=== PATIENT | male | born 1995 | race Caucasian/White ===

== ENCOUNTER 2017-11-29 05:08 | Emergency (ER) | payer OTHER ==
[~2017-11-29] VITALS: Ht 182.9 cm; Wt 104.3 kg
--- OUTSIDE RECORDS SUMMARY | 2017-11-29 05:17 | XMS REPORT | Continuity of Care Document ---
Author Author [facility] Organization [facility] Address Unknown Phone Unavailable Allergies There is no data. Medications There is no data. Problems There is no data. Procedures There is no data. Results There is no data. Encounters ACCT No. Visit Date/Time Discharge Status Pt. Type Provider Facility Loc./Unit Complaint [id number] 06/28/2014 14:37:39 06/28/2014 23:59:59 [facility] Garvey [id number] 06/28/2014 13:59:22 06/28/2014 23:59:59 [facility] Garvey [id number] 06/21/2014 12:04:54 06/21/2014 23:59:59 [facility] Israel Garvey [id number] 06/18/2014 11:51:39 06/18/2014 23:59:59 [facility] Israel Garvey
[2017-11-29] MEDS ORDERED: RX-ONDANSETRON 4 MG ODT (ZOFRAN) PPK #4 PO STA (05:24)
--- NOTE | 2017-11-29 05:31 | ED GI ---
General Chief Complaint: Abdominal/GI Problems Stated Complaint: POSS FOOD POISONING,VOMITING,DIARRHEA Nursing Triage Note: PT TO ED 6 W/ C/O N/V/D ONSET 2200 AFTER EATING HAMBURGERS AT 1830. PT REPORTS HE THINKS HE HAS FOOD POISONING. Sepsis Screen: No Definite Risk Source of Information: Patient Exam Limitations: No Limitations History of Present Illness Date Seen by Provider: Nov 29, 2017 Time Seen by Provider: 05:17 Initial Comments Patient presents to the ER by private conveyance with chief complaint that last night he took some hamburgers on the range and so that they had a warm pink center like he normally eats them at about 1830. About 0 last night he began to experience abdominal cramps, diarrhea that is without blood and nausea and vomiting 5 or 6 times tonight. Is feeling dehydrated and wants something for the nausea. Says he can't keep anything down. He has no other significant medical or surgical history. He is on Vyvanse for ADHD. He has not been on antibiotics in the last 4 weeks nor has he had any travel outside of the [facility]. He is not having fevers, chest pain, shortness of breath. Allergies and Home Medications Allergies Coded Allergies: amoxicillin (Verified Allergy, Unknown, 11/29/17) Home Medications No Active Prescriptions or Reported Meds Review of Systems Constitutional: No chills, No diaphoresis EENTM: No Ear Pain, No Mouth Pain Respiratory: Denies Cough, Denies Shortness of Air Cardiovascular: Denies Chest Pain, Denies Palpitations Gastrointestinal: Denies Constipated, Diarrhea, Nausea, Poor Fluid Intake, Vomiting Musculoskeletal: No back pain, No joint pain Skin: No pruritus, No rash Psychiatric/Neurological: Denies Headache, Denies Numbness Past Dyjtftw-Enxosr-Povdfk Hx Patient Social History Alcohol Use: Occasionally Uses Recreational Drug Use: No Smoking Status: Never a Smoker Recent Foreign Travel: No Contact w/Someone Who Travel: No Recent Infectious Disease Expo: No Recent Hopitalizations: No Physical Abuse: No Sexual Abuse: No Mistreated: No Fear: No Surgeries History of Surgeries: Yes Surgeries: Appendectomy Respiratory History of Respiratory Disorde: No Cardiovascular History of Cardiac Disorders: No Neurological History of Neurological Disord: No Genitourinary History of Genitourinary Disor: No Gastrointestinal History of Gastrointestinal Di: No Musculoskeletal History of Musculoskeletal Dis: No Endocrine History of Endocrine Disorders: No HEENT History of HEENT Disorders: No Cancer History of Cancer: No Psychosocial History of Psychiatric Problem: No Suicide Risk Score: 0 Integumentary History of Skin or Integumenta: No Blood Transfusions History of Blood Disorders: No Physical Exam Vital Signs VS - Last 72 Hours, by Label 11/29/17 05:12 Temp 96.6 Pulse 127 Resp 18 B/P (MAP) 132/97 (109) Pulse Ox 98 O2 Delivery Room Air Capillary Refill : Less Than 3 Seconds General Appearance: WD/WN, no apparent distress HEENT: PERRL/EOMI, pharynx normal (oropharynx is moist.) Respiratory: chest non-tender, lungs clear, normal breath sounds Cardiovascular: normal peripheral pulses, regular rate, rhythm, no edema Gastrointestinal: normal bowel sounds, non tender, soft Extremities: non-tender, normal capillary refill Neurologic/Psychiatric: alert, normal mood/affect, oriented x 3 Skin: normal color, warm/dry Progress/Results/Core Measures Results/Orders Vital Signs/I&O Vital Sign - Last 12Hours 11/29/17 05:12 Temp 96.6 Pulse 127 Resp 18 B/P (MAP) 132/97 (109) Pulse Ox 98 O2 Delivery Room Air Blood Pressure Mean: 109 Progress Note : Time: 05:28 Progress Note We'll give the patient some Zofran and he should be a little tolerate oral rehydration sports drinks at home. He Departure Impression Impression: Primary Impression: Gastroenteritis and colitis, toxic Disposition: 01 HOME, SELF-CARE Condition: Stable Departure-Patient Inst. Decision time for Depature: 05:29 Referrals: BEN OROZCO MD (PCP/Family) Primary Care Physician Patient Instructions: Viral Gastroenteritis, Adult (DC) Add. Discharge Instructions: Use the Zofran 1 tablet on the tongue every 4 hours as needed to control your nausea. Drink lots of fluids especially sports drinks. Please do not take anything to slow down or stop your diarrhea for at least the first 24-48 hours. Make sure you're drinking more fluids than you're losing. If you're unable to keep up with your fluid intake then you can take 2 tablets of Imodium/ loperamide followed by one more tablet every 4 hours as needed for loose stools. If your symptoms are more longer than 7-10 days or you start to have bloody bowel movements you should follow up with your primary care physician for further management. All discharge instructions reviewed with patient and/or family. Voiced understanding. Scripts Ondansetron (Ondansetron Odt) 4 Mg Tab.rapdis 4 MG PO Q4H Y for NAUSEA/VOMITING, #8 TAB 0 Refills Prov: KARIN PEREZ 11/29/17 Work/School Note: Work Release Form Date Seen in the Emergency Department: Nov 29, 2017 Return to Work: Nov 30, 2017 Restrictions: No Restrictions KARIN PEREZ Nov 29, 2017 05:31
[2017-11-29] MEDS ORDERED: ONDA4TAB11 PO (05:32)
[2017-11-29 05:33] VITALS: BP 0/0
== END 2017-11-29 05:33 | disposition home or self-care (01) ==
LOC: ER 05:13
DX: T62.8X1A Toxic effect of other specified noxious substances eaten as food, accidental (unintentional), initial encounter (principal); K52.1 Toxic gastroenteritis and colitis; F90.9 Attention-deficit hyperactivity disorder, unspecified type; Z90.49 Acquired absence of other specified parts of digestive tract; Z88.1 Allergy status to other antibiotic agents
CPT/HCPCS: 99283